=== PATIENT | male | born 1945 | race Caucasian/White ===

== ENCOUNTER 2022-04-28 11:00 | Day surgery (SDC) | payer OTHER ==
[2022-04-26 15:36] LABS: Lymphocytes % 30.8 % (15.3-44.8); MCV 83.6 fL (80-100); MPV 7.5 fL (7.6-11.3); RBC Red Blood Cell Count 5.15 M/uL (4.33-5.43)
--- NOTE | 2022-04-26 15:50 | RAD REPORT ---
EXAM DESCRIPTION: RAD - Chest Pa And Lat (2 Views) - 04/26/2022 3:38 pm CLINICAL HISTORY: Pre op pending heart cath COMPARISON: <Comparisons> FINDINGS: Lines: None. Lungs: No evidence of edema or pneumonia. Pleural: No significant pleural effusions or pneumothorax. Cardiac: The heart size is within normal limits. Mediastinum: Within normal limits. Bones: No acute fractures. Wires noted overlying the cervical spine. Other: None IMPRESSION: No acute cardiopulmonary disease.
[2022-04-26 15:51] LABS: SARS-CoV-2 Antigen Rapid Res Negative (Negative)
[2022-04-26 15:54] LABS: Protime INR 1.04
[2022-04-26 16:02] LABS: Potassium 3.8 mmol/L (3.5-5.1)
[2022-04-28] MEDS ORDERED: LIDOCAINE 1% MPF 30 ML VIAL ONE (11:18)
[2022-04-28] MEDS ORDERED: HEPA 1000U/500MLS 2,000 UNIT/1,000 ML BAG IV ONE (11:18)
[2022-04-28] MEDS ORDERED: MIDAZOLAM HCL 2 MG/2 ML INJ ONE ×2 (11:20→12:36)
[2022-04-28] MEDS ORDERED: FENTANYL CITR 100 MCG/2 ML ONE (11:20)
[2022-04-28] MEDS ORDERED: CLOPIDOGREL 75 MG TABLET ONE (11:21)
[2022-04-28] MEDS ORDERED: HEPARIN 10,000 UNIT/10 ML VIAL IV ONE (11:21)
[2022-04-28] MEDS ORDERED: HEPARIN 5000 UNIT/ML 1 ML VIAL ONE (11:21)
[2022-04-28] MEDS ORDERED: VERAPAMIL HCL 10 MG/4 ML VIAL IV ONE (11:21)
[2022-04-28] MEDS ORDERED: ASPIRIN 325 MG TAB ONE (11:21)
[2022-04-28] MEDS ORDERED: ATROPINE SULF 1 MG/10 ML SYR IV ONE (11:22)
[2022-04-28] MEDS ORDERED: TICAGRELOR 90 MG TABLET PO ONE (11:22)
[2022-04-28] MEDS ORDERED: NA CHLORIDE 0.9% 500 ML ONE (11:35)
[2022-04-28 11:51] VITALS: TEMP 97
[2022-04-28] MEDS ORDERED: HEPA 1000U/500MLS 1,000 UNIT/500 ML BAG IV ONE (13:18)
[2022-04-28 19:24] VITALS: BP 137/56; O2SAT 98
--- NOTE | 2022-04-28 23:58 | OP ---
Date of Procedure: 04/28/2022 Surgeon: JOSE SILVER Procedure Performed: 1.Selective coronary angiogram. 2.Left heart catheterization. 3.PCI of severe proximal left circumflex stenosis, 90% stenosis. I used 3.5 x 24 mm Synergy drug-el uting stent. Post dilated using 4 x 12 mm NC balloon at the area of stenosis. Indication: Unstable angina. Access: Right radial artery 6-[place] closed with TR band. Complications: None. Bleeding: Less than 50 mL. Anesthesia: Total sedation time was 50 minutes. Description Of Procedure: After risks, benefits, and alternatives were explained, the patient agreed to procedure and signed informed consent. The patient was brought into the cardiac catheterization laboratory, prepped and draped in usual sterile fashion. Then, we accessed the right radial artery u sing pediatric micropuncture kit and placed a 6-[place] Slender sheath and took a 5-[place] Thorpe 4 cat heter in the aortic root and engaged left main and right coronary artery and took center views and th en the catheter was pushed over the wire into the LV, measured the LVEDP and pullback did not record any gradient. Then, we gave systemic heparin and 180 of Brilinta. The patient already had aspirin a nd took EBU 3.5 6-[place] guide into the aortic root over a J-wire and engaged left main, took short r un-through wire into the left circumflex, placed it distally, and then I used a 3.0 x 20 mm compliant balloon to high pressure. Lesion expanded very well and then replaced at 3.5 x 24 mm Synergy drug-e luting stent, post dilated to 4.0 x 12 mm NC balloon with excellent results. I then removed the wire , the guide, and sheath, placed TR band with good hemostasis. Findings: 1.Left main: Large and normal. 2.LAD: Large vessel, wraps around the apex and proximally it is patent with a patent stent, then th e mid segment has diffuse long lesion as 80% to 90% stenosed, heavily calcified, and then the LAD bec omes normal and diagonal branch appears normal. 3.Left circumflex proximal 90% stenosis and then 60% stenosis immediately after the first occlusion and status post successful PCI as above. The left circumflex is a dominant artery supplies the infer ior wall and then before the bifurcation to the left PDA, there is about 50% to 60% stenosis. 4.RCA, proximal SURGICAL COORDINATOR totally occluded and then has collaterals from the left that showed up after ope hussain the left circumflex stenosis. 5.LVEDP is borderline elevated at 15 mmHg. Conclusion: 1.Severe left circumflex and mid LAD stenosis, status post successful PCI of the left circumflex. 2.Proximal SURGICAL COORDINATOR, but it is non-dominant vessel as the left circ is dominant and its collaterals comin g from the left as well. Plan: 1.Continue Brilinta, aspirin, and high-dose statin. 2.Plan for staged PCI of mid LAD with atherectomy. SR/MODL Voice ID: [id number] Report ID: [id number]
== END 2022-04-28 20:24 | disposition home or self-care (01) ==
LOC: CCL 11:00
PROVIDERS: ATTEND Internal Medicine
DX: I25.110 Atherosclerotic heart disease of native coronary artery with unstable angina pectoris (principal); I25.82 Chronic total occlusion of coronary artery; I10 Essential (primary) hypertension; E78.5 Hyperlipidemia, unspecified; Z95.5 Presence of coronary angioplasty implant and graft; Z87.891 Personal history of nicotine dependence; Z79.82 Long term (current) use of aspirin; Z79.899 Other long term (current) drug therapy; Z20.822 Contact with and (suspected) exposure to COVID-19
CPT/HCPCS: 85025; 80048; 36415; 85610; 85730; 71046; 93458; 87811; C1893; Q9967; C1725; C9600; J1644 ×3; J2250; J3010; J7040